=== PATIENT | female | born 1965 | race Caucasian/White ===

== ENCOUNTER 2019-05-09 08:07 | Day surgery (SDC) | payer OTHER ==
[2019-05-09] MEDS ORDERED: PROPOFOL 40 ML (09:35)
== END 2019-05-09 12:42 | disposition home or self-care (01) ==
LOC: GIL 08:07
DX: Z12.11 Encounter for screening for malignant neoplasm of colon (principal); K64.8 Other hemorrhoids
CPT/HCPCS: 45378